=== PATIENT | female | born 1985 | race African-American/Black ===

== ENCOUNTER 2019-01-14 16:05 | Inpatient (IN) ==
[2019-01-14] MEDS ORDERED: ONDANSETRON 4 MG/2 ML VIAL IV STA (17:12)
[2019-01-14] MEDS ORDERED: MORPHINE 4 MG/1 ML VIAL IV STA (17:13)
[2019-01-14] MEDS ORDERED: KETOROLAC 30 MG/1 ML VIAL IV STA (17:13)
[2019-01-14 17:15] LABS: Apearance,Urine Slightly Hazy (Clear); Bacteria,Urine Occasional /HPF (Few); Bilirubin,Urine Negative (Negative); Blood, Urine Moderate mg/dL (Negative); Glucose,Urine (UA) Negative (Negative); Ketones,Urine Negative (Negative); Mucus,Urine Occasional /LPF (Occasional); Nitrite,Urine Negative (Negative); Protein,Urine 30 MG/DL; RBC,Urine 5 /HPF (0-4); Squamous Epithelial Cell,Urine Occasional /HPF (0-10); Urine Color Amber (Yellow); Urine Specific Gravity 1.017 (1.001-1.035); WBC,Urine 21 /HPF (0-6)
[2019-01-14 17:17] LABS: Basophils % 0.2 % (0.0-0.8); Eosinophils % 0.2 % (0.00-10.9); Hematocrit 28.4 VOL% (35.7-47.0); Hemoglobin 8.9 GM/DL (12.0-16.0); Immature Granulocytes % 0.6 %; Immature Granulocytes Absolute 0.09 #; Lymphocytes # 1.3 10*3/uL (1.4-4.0); Lymphocytes % 8.3 % (21.3-54.2); Mean Corpuscular HGB Conc 31.3 GM/DL (32-36); Mean Corpuscular Volume 77.4 FL (87-102); Mean Platelet Volume 8.5 FL (9.6-12.0); Monocytes % 9.8 % (1.7-12.7); Neutrophils % 80.9 % (38.7-73.9); Platelet Count 776 T/CUMM (130-400); Red Blood Count 3.67 MC/CUMM (3.8-5.5); Red Cell Distribution Width 14.6 % (9.3-17.3); White Blood Count 15.6 T/CUMM (4-12)
[2019-01-14 17:44] LABS: Platelet Estimate Adequate
[2019-01-14 17:47] LABS: Albumin 3.1 G/DL (3.4-5.0); Bilirubin,Total 0.6 MG/DL (0.2-1.0); Calcium 9.4 MG/DL (8.5-10.1); Osmolality,Calculated 267.2 MOS/KG (273-304); Total Protein 8.8 G/DL (6.4-8.3)
[2019-01-14] MEDS ORDERED: PROMETHAZINE 25 MG/1 ML VIAL IM STA (17:49)
[2019-01-14] MEDS ORDERED: VANCOMYCIN INJ 1,000 MG in SODIUM CHLORIDE 0.9% 250 ML IV STA (18:05)
[2019-01-14] MEDS ORDERED: VANCOMYCIN 1,000 MG VIAL ONE (18:08)
[2019-01-14] MEDS: cefTRIAXone 1,000 MG in SODIUM CHLORIDE 0.9% 100 ML IV STA (18:13)
[2019-01-14] MEDS ORDERED: ACETAMINOPHEN 500 MG TABLET ONE (18:39)
[2019-01-14] MEDS ORDERED: ACETAMINOPHEN 500 MG TABLET PO STA (18:56)
[2019-01-14] MEDS ORDERED: ONDANSETRON 4 MG/2 ML VIAL IV PRN (20:00)
[2019-01-14] MEDS ORDERED: CYCLOBENZAPRINE 10 MG TABLET PO PRN (20:06)
[2019-01-14] MEDS ORDERED: ALBUTEROL 2.5 MG/3 ML NEB RESP TX PRN (20:06)
[2019-01-14] MEDS: SODIUM CHLORIDE 0.45% 1,000 ML IV SCH (21:46)
[2019-01-14] MEDS: CITALOPRAM 20 MG TABLET PO SCH (22:15)
[2019-01-14] MEDS: PROMETHAZINE 25 MG TABLET PO PRN (22:15)
[2019-01-14] MEDS: IRON (CARBONYL)/VIT C/B12/FA TABLET PO SCH (22:15)
[2019-01-14] MEDS: DICLOFENAC SODIUM 50 MG TABLET PO SCH (22:15)
[2019-01-14] MEDS: DICLOFENAC SODIUM 75 MG TABLET PO SCH ×2 (22:15→23:46)
[2019-01-14] MEDS: ENOXAPARIN 40 MG/0.4 ML SYRINGE SUBCUT SCH (22:16)
[2019-01-14] MEDS: PIPERACILLIN/TAZOBACTAM 3,375 MG in SODIUM CHLORIDE 0.9% 100 ML IV SCH (22:16)
[2019-01-14] MEDS: POTASSIUM CHLORIDE RIDER 10 MEQ in PREMIX 1 EACH IV SCH (22:16)
[2019-01-15] MEDS: POTASSIUM CHLORIDE RIDER 10 MEQ in PREMIX 1 EACH IV SCH ×2 (00:05→01:05)
[2019-01-15] MEDS: MORPHINE 4 MG/1 ML VIAL IV PRN ×4 (01:53→21:56)
[2019-01-15] MEDS: VANCOMYCIN INJ 1,750 MG in SODIUM CHLORIDE 0.9% 500 ML IV SCH ×2 (02:02→15:07)
[2019-01-15 05:15] LABS: Basophils % 0.3 % (0.0-0.8); Eosinophils # 0.1 10*3/uL (0.0-0.87); Eosinophils % 0.7 % (0.00-10.9); Hematocrit 24.3 VOL% (35.7-47.0); Hemoglobin 7.4 GM/DL (12.0-16.0); Immature Granulocytes % 0.6 %; Immature Granulocytes Absolute 0.08 #; Lymphocytes # 1.7 10*3/uL (1.4-4.0); Lymphocytes % 13.4 % (21.3-54.2); Mean Corpuscular HGB Conc 30.5 GM/DL (32-36); Mean Corpuscular Volume 78.4 FL (87-102); Mean Platelet Volume 8.6 FL (9.6-12.0); Monocytes % 12.3 % (1.7-12.7); Neutrophils % 72.7 % (38.7-73.9); Platelet Count 629 T/CUMM (130-400); Red Cell Distribution Width 14.8 % (9.3-17.3); White Blood Count 12.6 T/CUMM (4-12)
[2019-01-15 05:45] LABS: Albumin 2.6 G/DL (3.4-5.0); Bilirubin,Total 0.9 MG/DL (0.2-1.0); Calcium 8.8 MG/DL (8.5-10.1); Risk Ratio 6.73; Total Protein 7.7 G/DL (6.4-8.3); VLDL CHOLESTEROL 22.6 MG/DL
[2019-01-15] MEDS: PIPERACILLIN/TAZOBACTAM 3,375 MG in SODIUM CHLORIDE 0.9% 100 ML IV SCH ×3 (06:01→22:31)
[2019-01-15] MEDS: PROMETHAZINE 25 MG TABLET PO PRN (07:01)
[2019-01-15] MEDS: ACETAMINOPHEN 325 MG TABLET PO PRN (08:18)
[2019-01-15] MEDS: PANTOPRAZOLE 40 MG TABLET PO SCH (08:18)
[2019-01-15] MEDS: DICLOFENAC SODIUM 50 MG TABLET PO SCH ×2 (08:18→21:43)
[2019-01-15] MEDS: SODIUM CHLORIDE 0.45% 1,000 ML IV SCH ×2 (08:20→20:34)
[2019-01-15] MEDS ORDERED: PROMETHAZINE 25 MG/1 ML VIAL IM PRN (08:34)
[2019-01-15] MEDS ORDERED: PROMETHAZINE INJ 12.5 MG in SODIUM CHLORIDE 0.9% 50 ML IV ONE (09:54)
[2019-01-15] MEDS: PROMETHAZINE INJ 12.5 MG in SODIUM CHLORIDE 0.9% 50 ML IV PRN ×2 (14:23→21:43)
[2019-01-15] MEDS: POTASSIUM CHLORIDE RIDER 10 MEQ in PREMIX 1 EACH IV PRN (18:17)
[2019-01-15] MEDS ORDERED: Bictegrav-Emtricit-Tenofov Ala [Biktarvy] PO SCH (20:00)
[2019-01-15] MEDS: METOPROLOL TARTRATE 50 MG TABLET PO SCH (21:43)
[2019-01-15] MEDS: ENOXAPARIN 40 MG/0.4 ML SYRINGE SUBCUT SCH (21:43)
[2019-01-15] MEDS: IRON (CARBONYL)/VIT C/B12/FA TABLET PO SCH (21:44)
[2019-01-15] MEDS: CITALOPRAM 20 MG TABLET PO SCH (22:31)
[2019-01-16 02:59] LABS: Basophils % 0.2 % (0.0-0.8); Hematocrit 25.6 VOL% (35.7-47.0); Hemoglobin 7.8 GM/DL (12.0-16.0); Immature Granulocytes % 0.9 %; Immature Granulocytes Absolute 0.21 #; Lymphocytes # 1.4 10*3/uL (1.4-4.0); Lymphocytes % 5.8 % (21.3-54.2); Mean Corpuscular HGB Conc 30.5 GM/DL (32-36); Mean Corpuscular Volume 78.8 FL (87-102); Mean Platelet Volume 8.8 FL (9.6-12.0); Monocytes % 6.4 % (1.7-12.7); Neutrophils % 86.7 % (38.7-73.9); Platelet Count 662 T/CUMM (130-400); Red Blood Count 3.25 MC/CUMM (3.8-5.5); Red Cell Distribution Width 14.9 % (9.3-17.3); White Blood Count 24.2 T/CUMM (4-12)
[2019-01-16] MEDS: VANCOMYCIN INJ 1,750 MG in SODIUM CHLORIDE 0.9% 500 ML IV SCH (03:06)
[2019-01-16 03:17] LABS: Calcium 9.5 MG/DL (8.5-10.1); Osmolality,Calculated 278.7 MOS/KG (273-304)
[2019-01-16] MEDS ORDERED: PROMETHAZINE IV SCH (03:30)
[2019-01-16] MEDS ORDERED: DIPHENHYDRAMINE IV SCH (03:30)
[2019-01-16] MEDS ORDERED: SODIUM CHLORIDE 0.9% IV SCH (03:30)
[2019-01-16 05:18] LABS: Lymphocytes 4 % (20-55); Segmented Neutrophils 85 % (50-85); Total Cells Counted 100
[2019-01-16 05:19] LABS: Anisocytosis 1+; Hypochromasia 1+; Platelet Estimate Increased
[2019-01-16] MEDS: PIPERACILLIN/TAZOBACTAM 3,375 MG in SODIUM CHLORIDE 0.9% 100 ML IV SCH ×2 (06:18→14:20)
[2019-01-16] MEDS: MORPHINE 4 MG/1 ML VIAL IV PRN ×3 (08:18→21:15)
[2019-01-16] MEDS: PANTOPRAZOLE 40 MG TABLET PO SCH (08:21)
[2019-01-16] MEDS: DICLOFENAC SODIUM 50 MG TABLET PO SCH (08:27)
[2019-01-16] MEDS: PROMETHAZINE INJ 12.5 MG in SODIUM CHLORIDE 0.9% 50 ML IV PRN ×2 (09:19→17:59)
[2019-01-16] MEDS: SODIUM CHLORIDE 0.45% 1,000 ML IV SCH ×2 (09:22→09:50)
[2019-01-16] MEDS: SODIUM CHLORIDE 0.9% 1,000 ML IV SCH ×2 (09:56→21:16)
[2019-01-16] MEDS ORDERED: PROMETHAZINE INJ 12.5 MG in SODIUM CHLORIDE 0.9% 50 ML IV ONE (11:41)
[2019-01-16] MEDS: cefTAZidime 1,000 MG in SYRINGE 1 EACH IV SCH (15:37)
[2019-01-16] MEDS: hydrALAZINE 20 MG/1 ML VIAL IV PRN (16:20)
[2019-01-16] MEDS: ENOXAPARIN 40 MG/0.4 ML SYRINGE SUBCUT SCH (21:15)
[2019-01-16] MEDS: METOPROLOL TARTRATE 50 MG TABLET PO SCH (21:22)
[2019-01-17] MEDS: CITALOPRAM 20 MG TABLET PO SCH ×2 (00:21→22:37)
[2019-01-17] MEDS: DICLOFENAC SODIUM 50 MG TABLET PO SCH ×3 (00:21→22:37)
[2019-01-17] MEDS: IRON (CARBONYL)/VIT C/B12/FA TABLET PO SCH ×2 (00:21→22:38)
[2019-01-17] MEDS: PROMETHAZINE INJ 12.5 MG in SODIUM CHLORIDE 0.9% 50 ML IV PRN ×3 (02:22→16:39)
[2019-01-17] MEDS: cefTAZidime 1,000 MG in SYRINGE 1 EACH IV SCH (05:33)
[2019-01-17 06:13] LABS: Basophils % 0.1 % (0.0-0.8); Eosinophils % 0.1 % (0.00-10.9); Hematocrit 23.3 VOL% (35.7-47.0); Hemoglobin 7.1 GM/DL (12.0-16.0); Immature Granulocytes % 1.5 %; Immature Granulocytes Absolute 0.22 #; Lymphocytes # 1.2 10*3/uL (1.4-4.0); Lymphocytes % 8.2 % (21.3-54.2); Mean Corpuscular HGB Conc 30.5 GM/DL (32-36); Mean Corpuscular Volume 77.9 FL (87-102); Mean Platelet Volume 9.1 FL (9.6-12.0); Monocytes % 6.5 % (1.7-12.7); Neutrophils % 83.6 % (38.7-73.9); Platelet Count 690 T/CUMM (130-400); Red Blood Count 2.99 MC/CUMM (3.8-5.5); Red Cell Distribution Width 14.8 % (9.3-17.3); White Blood Count 15.1 T/CUMM (4-12)
[2019-01-17] MEDS: MORPHINE 4 MG/1 ML VIAL IV PRN ×3 (06:23→19:23)
[2019-01-17 06:24] LABS: Calcium 8.9 MG/DL (8.5-10.1); Osmolality,Calculated 275.8 MOS/KG (273-304)
[2019-01-17] MEDS: SODIUM CHLORIDE 0.9% 1,000 ML IV SCH ×3 (08:38→17:04)
[2019-01-17] MEDS: cefTRIAXone 1,000 MG in SODIUM CHLORIDE 0.9% 100 ML IV STA (08:58)
[2019-01-17] MEDS: PANTOPRAZOLE 40 MG TABLET PO SCH (09:20)
[2019-01-17] MEDS: POTASSIUM CHLORIDE RIDER 10 MEQ in PREMIX 1 EACH IV PRN ×4 (13:01→16:36)
[2019-01-17] MEDS: cefTAZidime 2,000 MG in SYRINGE 1 EACH IV SCH ×2 (13:03→21:52)
[2019-01-17] MEDS: ENOXAPARIN 40 MG/0.4 ML SYRINGE SUBCUT SCH (21:56)
[2019-01-17] MEDS: METOPROLOL TARTRATE 50 MG TABLET PO SCH (22:37)
[2019-01-18] MEDS: MORPHINE 4 MG/1 ML VIAL IV PRN ×5 (00:03→19:45)
[2019-01-18] MEDS: cefTAZidime 2,000 MG in SYRINGE 1 EACH IV SCH ×3 (04:43→21:15)
[2019-01-18 04:59] LABS: Basophils % 0.3 % (0.0-0.8); Eosinophils % 0.3 % (0.00-10.9); Hematocrit 23.9 VOL% (35.7-47.0); Hemoglobin 7.3 GM/DL (12.0-16.0); Immature Granulocytes % 2.8 %; Immature Granulocytes Absolute 0.28 #; Lymphocytes # 1.4 10*3/uL (1.4-4.0); Mean Corpuscular HGB Conc 30.5 GM/DL (32-36); Mean Corpuscular Volume 77.6 FL (87-102); Mean Platelet Volume 9.1 FL (9.6-12.0); Neutrophils % 73.6 % (38.7-73.9); Platelet Count 696 T/CUMM (130-400); Red Blood Count 3.08 MC/CUMM (3.8-5.5); Red Cell Distribution Width 14.9 % (9.3-17.3); White Blood Count 9.9 T/CUMM (4-12)
[2019-01-18 05:14] LABS: Calcium 8.7 MG/DL (8.5-10.1); Osmolality,Calculated 273.7 MOS/KG (273-304)
[2019-01-18] MEDS: PANTOPRAZOLE 40 MG TABLET PO SCH (08:25)
[2019-01-18] MEDS: DICLOFENAC SODIUM 50 MG TABLET PO SCH ×2 (08:25→21:13)
[2019-01-18] MEDS: PROMETHAZINE 25 MG TABLET PO PRN ×2 (08:25→19:45)
[2019-01-18] MEDS: POTASSIUM CHLORIDE RIDER 10 MEQ in PREMIX 1 EACH IV PRN ×6 (08:26→16:39)
[2019-01-18] MEDS: hydrALAZINE 20 MG/1 ML VIAL IV PRN ×2 (08:26→16:20)
[2019-01-18] MEDS: SODIUM CHLORIDE 0.9% 1,000 ML IV SCH ×2 (08:27→15:20)
[2019-01-18 08:44] LABS: % Iron Saturation 13.4 % (18-50); Ferritin 193.2 ng/ml (8-252)
[2019-01-18] MEDS: ENOXAPARIN 40 MG/0.4 ML SYRINGE SUBCUT SCH (21:13)
[2019-01-18] MEDS: CITALOPRAM 20 MG TABLET PO SCH (21:14)
[2019-01-18] MEDS: IRON (CARBONYL)/VIT C/B12/FA TABLET PO SCH (21:14)
[2019-01-18] MEDS: METOPROLOL TARTRATE 50 MG TABLET PO SCH (21:14)
[2019-01-19] MEDS: MORPHINE 4 MG/1 ML VIAL IV PRN ×3 (01:16→18:19)
[2019-01-19 04:51] LABS: Basophils # 0.1 10*3/uL (0.0-0.2); Basophils % 0.5 % (0.0-0.8); Eosinophils # 0.1 10*3/uL (0.0-0.87); Eosinophils % 1.1 % (0.00-10.9); Hematocrit 27.1 VOL% (35.7-47.0); Hemoglobin 8.3 GM/DL (12.0-16.0); Immature Granulocytes % 4.6 %; Immature Granulocytes Absolute 0.42 #; Lymphocytes # 1.3 10*3/uL (1.4-4.0); Lymphocytes % 14.7 % (21.3-54.2); Mean Corpuscular HGB Conc 30.6 GM/DL (32-36); Mean Corpuscular Volume 77.2 FL (87-102); Mean Platelet Volume 8.7 FL (9.6-12.0); Neutrophils % 70.1 % (38.7-73.9); Platelet Count 768 T/CUMM (130-400); Red Blood Count 3.51 MC/CUMM (3.8-5.5); Red Cell Distribution Width 14.8 % (9.3-17.3); White Blood Count 9.1 T/CUMM (4-12)
[2019-01-19 05:01] LABS: Calcium 8.9 MG/DL (8.5-10.1); Osmolality,Calculated 269.1 MOS/KG (273-304)
[2019-01-19] MEDS: cefTAZidime 2,000 MG in SYRINGE 1 EACH IV SCH ×3 (05:47→21:04)
[2019-01-19] MEDS ORDERED: POTASSIUM CHLORIDE 20 MEQ/15 ML UDCUP PO ONE ×2 (08:45→09:00)
[2019-01-19] MEDS ORDERED: LACTATED RINGERS 1,000 ML IV SCH (09:00)
[2019-01-19] MEDS ORDERED: LIDOCAINE 2% 5 ML VIAL ONE (10:00)
[2019-01-19] MEDS ORDERED: PROPOFOL 200 MG/20 ML VIAL IV ONE (10:00)
[2019-01-19] MEDS: SODIUM CHLORIDE 0.9% 1,000 ML IV SCH ×2 (13:28→22:28)
[2019-01-19] MEDS: MAGNESIUM SULFATE 1 GM/2 ML VIAL IM SCH ×2 (13:32→21:04)
[2019-01-19 14:30] LABS: % CD4 (T Cells) 25 % (32-64); % CD8 (T Cells) 40 % (15-40); 4/8 Ratio 0.6 (>=0.9)
[2019-01-19] MEDS: PROMETHAZINE INJ 12.5 MG in SODIUM CHLORIDE 0.9% 50 ML IV PRN (14:34)
[2019-01-19] MEDS: PANTOPRAZOLE 40 MG TABLET PO SCH (15:28)
[2019-01-19] MEDS: ACETAMINOPHEN 325 MG TABLET PO PRN (15:28)
[2019-01-19] MEDS: DICLOFENAC SODIUM 50 MG TABLET PO SCH ×2 (15:28→22:26)
[2019-01-19] MEDS: POTASSIUM CHLORIDE 20 MEQ TABLET PO SCH ×3 (15:29→19:20)
[2019-01-19] MEDS: ENOXAPARIN 40 MG/0.4 ML SYRINGE SUBCUT SCH (21:04)
[2019-01-19] MEDS: METOPROLOL TARTRATE 50 MG TABLET PO SCH (22:25)
[2019-01-19] MEDS: CITALOPRAM 20 MG TABLET PO SCH (22:25)
[2019-01-19] MEDS: IRON (CARBONYL)/VIT C/B12/FA TABLET PO SCH (22:26)
[2019-01-20] MEDS: PROMETHAZINE 25 MG TABLET PO PRN (00:53)
[2019-01-20] MEDS: hydrALAZINE 20 MG/1 ML VIAL IV PRN (00:53)
[2019-01-20] MEDS: POTASSIUM CHLORIDE 20 MEQ TABLET PO SCH (00:54)
[2019-01-20] MEDS: POTASSIUM CHLORIDE RIDER 10 MEQ in PREMIX 1 EACH IV PRN ×4 (02:20→05:34)
[2019-01-20] MEDS: SODIUM CHLORIDE 0.9% 1,000 ML IV SCH (04:37)
[2019-01-20] MEDS: cefTAZidime 2,000 MG in SYRINGE 1 EACH IV SCH (05:31)
[2019-01-20 08:20] LABS: Osmolality,Calculated 264.4 MOS/KG (273-304)
[2019-01-20 08:26] VITALS: BP 180/72
[2019-01-20] MEDS: PANTOPRAZOLE 40 MG TABLET PO SCH (10:03)
[2019-01-20] MEDS: DICLOFENAC SODIUM 50 MG TABLET PO SCH (11:36)
== END 2019-01-20 11:35 | disposition left against medical advice (07) | DRG 607 ==
LOC: N.ED 16:05 → SUATTDRO 19:57 → N.EDINP 19:57 → N.2E 20:47
PROVIDERS: ADMIT Internal Medicine; ATTEND Internal Medicine Cardiovascular Disease